=== PATIENT | male | born 1955 | race Caucasian/White ===

== ENCOUNTER → 2017-12-18 09:21 | Outpatient (REF) | payer OTHER, SELFPAY ==
[2017-12-18 14:23] LABS: Basophils # 0.1 K/mm3 (0-0.2); Basophils % 1.1 % (0.1-2.0); Eosinophils # 0.2 K/mm3 (0.0-0.4); Eosinophils % 3.2 % (0.1-12.0); Hematocrit 49.8 % (42.0-52.0); Lymphocytes # 1.6 K/mm3 (0.7-4.5); Lymphocytes % 28.4 K/mm3 (10-50); Mean Corpuscular Hemoglobin 31.8 pg (27.0-31.2); Mean Corpuscular Volume 99.3 fl (80-94); Mean Platelet Volume 9.1 fl (7.4-10.4); Monocytes # 0.4 K/mm3 (0.1-1.0); Monocytes % 7.2 % (1.7-9.3); Neutrophils # 3.4 K/mm3 (1.8-7.8); Neutrophils % 60.1 % (37.0-80.0); Platelet Count 242 K/mm3 (142-424); Red Blood Count 5.02 M/mm3 (4.60-6.20); Red Cell Distribution Width 13.7 % (11.5-17.5); White Blood Count 5.7 K/mm3 (4.8-10.8)
[2017-12-18 15:21] LABS: Alanine Aminotransferase 22 U/L (12-78); Albumin/Globulin Ratio 1.2 (1.1-1.8); Alkaline Phosphatase 74 U/L (46-116); Anion Gap 12.6 mEq/L (5-15); Aspartate Amino Transferase 11 U/L (15-37); Bilirubin,Total 0.3 mg/dL (0.2-1.0); Blood Urea Nitrogen 16 mg/dL (7-18); Calcium 9.1 mg/dL (8.5-10.1); Carbon Dioxide 30 mmol/L (21.0-32.0); Chloride 108 mmol/L (98-107); Chol/HDL Ratio 1.9 (1-3.5); Cholesterol 111 mg/dL (140-200); Creatinine,Serum 1.08 mg/dL (0.70-1.30); Estimated Glomerular Filt Rate 70 ml/min (>60); GFR (African American) 84 ML/MIN (>60); Globulin 3.3 gm/dl (1.3-3.2); Glucose 67 mg/dL (74-106); HDL Cholesterol 57 mg/dL (27-67); LDL Cholesterol 30 mg/dL (0-130); Potassium 4.6 mmoL/L (3.5-5.1); Sodium 146 mmol/L (136-145); Thyroid Stimulating Hormone 1.72 uIU/ml (0.358-3.740); Total Protein,Serum 7.3 gm/dL (6.4-8.2); Triglycerides 119 mg/dL (30-200); VLDL Cholesterol 24 mg/dL (0-40)
[2017-12-18 15:34] LABS: Hemoglobin A1C 5.5 % (0.0-7.0)
[2017-12-20 12:52] LABS: PSA, Free 0.23 ng/mL; Prostate Specific Ag 0.9 ng/mL (0.0-4.0); Vitamin D 25 Hydroxy 35.8 ng/mL (30.0-100.0)
== END ==
LOC: LAB 09:21
PROVIDERS: Visit Provider Nurse Practitioner Family
DX: R53.83 Other fatigue (principal); R06.02 Shortness of breath; R63.4 Abnormal weight loss
CPT/HCPCS: 80053; 80061; 82652; 83036; 84153; 84154; 84439; 84443; 85025

== ENCOUNTER → 2017-12-20 10:45 | Outpatient (CLI) | payer OTHER, SELFPAY ==
--- NOTE | 2017-12-20 10:50 | XR_ITS ---
XR chest 2V HISTORY: Shortness of air, smoker, cough with weight loss ITS.REASON: soa ORDERING PHYSICIAN: Jaimie Rudd PATIENT AGE: 62 years COMPARISON: None FINDINGS: The cardiomediastinal silhouette and pulmonary vascularity are within normal limits. There is hyperinflation with attenuation of the peripheral pulmonary vessels consistent with COPD. Small nodular opacities are present in the right upper lobe and may be due to granulomas. No lobar consolidation or collapse is evident. On the lateral view there is increased density along the anterior aspect of the major fissure anteriorly. This measures 2.2 x 1.4 cm in diameter to summation artifact. Pulmonary nodule is a consideration as well this patient with a history of smoking and weight loss. Consider chest CT for further evaluation. No acute bony anomalies. IMPRESSION: 1. COPD. 2. 2 cm nodular opacity in the seen on the lateral view in the inferior and anterior aspect of the chest which could be due to summation artifact or developing nodule. Consider chest CT for further evaluation
== END ==
PROVIDERS: PCP Emergency Medicine; Visit Provider Nurse Practitioner Family
DX: R06.02 Shortness of breath (principal)
CPT/HCPCS: 71046

== ENCOUNTER → 2018-01-10 06:38 | Outpatient (CLI) | payer OTHER, SELFPAY ==
--- NOTE | 2018-01-10 06:40 | NM_ITS ---
History and Indications: Tobacco use, family history, shortness of breath and fatigue Procedure: Patient received a 0.4 mg of intravenous Lexiscan, resting heart rate was 58 bpm resting blood pressure 147/83, with Lexiscan maximum heart rate achieved was 106 bpm which is less than 85% of the maximum predicted heart rate and a blood pressure was 157/78. With Lexiscan patient complained of shortness of breath. Electrocardiogram: Resting electrocardiogram showed sinus bradycardia, with Lexiscan less than 1.[address] segment depression noted from the baseline EKG, occasional premature ventricular complex is present. The EKG portion of the Lexiscan Myoview is nondiagnostic. Cardiac stress and resting SPECT images: Cardiac stress and rest SPECT images were obtained using technetium 99 Myoview 32.4 mCi at stress and 10.6 mCi at rest. Gated SPECT further analysis of segmental wall motion and calculation of the ejection fraction also done. Cardiac stress and rest SPECT images show uniform myocardial activity without segmental perfusion abnormality, computer derived ejection fraction is 40%, with no regional wall motion abnormality, however during this study frequent premature ventricular complex is present which may underestimate the ejection fraction. Contractility of the right ventricle cannot be determined Conclusion: 1. The EKG portion of the Lexiscan Myoview is nondiagnostic. 2. No scintigraphic evidence of reversible ischemia seen, computer derived ejection fraction 40% with no regional wall motion abnormality, however during this study frequent premature ventricular complex is present which may underestimate the ejection fraction, and echocardiogram will be better modality to evaluate left ventricle systolic function.
--- NOTE | 2018-01-10 06:40 | CA_ITS ---
PROCEDURE: 2-D M-mode and color Doppler study INDICATIONS FOR THE TEST: Chest pain+ COPD+ Heart Murmur Tobacco Smoking+ Palpitations Fatigue Syncope Edema Hypertension Diabetes Mellitus Rheumatic Fever SOB+ALEXANDRA+Obesity Hyperlipidemia Family History HD Additional History Abn EKG PATIENT INFORMATION HEIGHT: 74 WEIGHT: 132 GENDER: Male B/P: 128/73 2-D/M-MODE INTERPRETATION: 2-D MEASUREMENTS OBSERVED VALUES IN CMS Right Ventricular Dimension (RVDd) 1.6 Interventricular Septum (Thickness)(IVsd) 0.7 Left Ventricular Internal Dimensions(LVIDd) 4.5 Left Ventricular Posterior Wall (Thickness)(LVPWd) 0.8 Aortic Root 3.6 Aortic Cusp Separation 3.0 Left Atrial Dimensions (LAD) 2D 1. Left atrium is normal size, left ventricle is normal size, there is no concentric left ventricular hypertrophy, visually estimated ejection fraction of 55% with no regional wall motion abnormality, there is abnormal septal motion. 2. The right atrium and right ventricle are qualitatively mildly enlarged, contractility of the right ventricle is normal. 3. The aortic valve is minimally thickened and fibrosed. 4. The mitral and tricuspid valve are grossly normal. 5. The pulmonic valve is poorly visualized. 6. No significant pericardial effusion noted. DOPPLER INTERROGATION: Doppler interrogation of the aortic, mitral and tricuspid valvular presence of mild mitral and tricuspid regurgitation tricuspid regurgitation jet velocity is insufficient for calculation of the right ventricular systolic pressure, diastolic parameters are inconclusive. CONCLUSION: 1. Normal left ventricular size, preserved left ventricular systolic function, visually estimated ejection fraction 55%, there is abnormal septal motion, diastolic parameters are inconclusive. 2. Mild mitral and tricuspid regurgitation 3. No significant pericardial effusion noted.
== END ==
PROVIDERS: PCP Emergency Medicine; Visit Provider Internal Medicine
DX: R07.89 Other chest pain (principal); R06.09 Other forms of dyspnea; R63.4 Abnormal weight loss; R94.31 Abnormal electrocardiogram [ECG] [EKG]; J44.9 Chronic obstructive pulmonary disease, unspecified; F17.200 Nicotine dependence, unspecified, uncomplicated
CPT/HCPCS: 78452; 93017; 93306; A9502

== ENCOUNTER → 2018-01-12 13:26 | Outpatient (CLI) | payer OTHER, SELFPAY ==
--- NOTE | 2018-01-12 13:29 | CT_ITS ---
CT chest wo con HISTORY: Chest pain, abnormal chest x-ray, pulmonary nodule evaluation, shortness of air, smoker ITS.REASON: abn cxr ORDERING PHYSICIAN: Jaimie Rudd PATIENT AGE: 62 years COMPARISON: None Technique: Axial images obtained with sagittal and coronal reformats. All CT scans at the facility use one or more dose reduction, viz: automated exposure control, ma/kV adjustment per patient size (including targeted exams where dose is matched to indication, i.e. head), or iterative reconstruction technique. FINDINGS: No mediastinal or hilar mass or adenopathy. There are small nodes in the mediastinum 1 cm or less in short axis. Normal heart size. No evidence of pericardial effusion. There are moderate centrilobular emphysematous changes. There is a 5 mm nodule in the right upper lobe which does appear to contain a focus of calcium.. There is a 3 mm subpleural nodule in the left upper lobe laterally. A 3 mm nodules present in the left upper lobe centrally. There is mild diffuse bronchial thickening. There is hyperinflation with attenuation of the peripheral pulmonary vessels consistent with obstructive chronic bronchitis. A small focal pericardial fat pad is present on the left and likely accounts for the radiographic abnormality in the anterior aspect of the chest. There is also some pleural thickening here of the major fissure which likely contributes to the abnormality on the radiograph. No suspicious nodule is evident. There is a calcified granuloma in the right lower lobe anteriorly. No central obstructing lesions. No acute bony findings. IMPRESSION: 1. Radiographic abnormality corresponds to a left-sided pericardial fat pad along with some pleural thickening. No suspicious nodules evident. 2. Centrilobular emphysema with COPD. 3. There are scattered small pulmonary nodules some of which are calcified. The largest nodules in the right upper lobe 5 mm and appears to contain calcium. Recommend 12 month follow-up.
== END ==
PROVIDERS: PCP Emergency Medicine; Visit Provider Nurse Practitioner Family
DX: R93.8 Abnormal findings on diagnostic imaging of other specified body structures (principal); R07.89 Other chest pain; R06.09 Other forms of dyspnea
CPT/HCPCS: 71250

== ENCOUNTER → 2018-05-01 09:07 | Outpatient (POV) | payer OTHER, SELFPAY | PROVIDERS: Visit Provider Internal Medicine | DX: Z00.00 Encounter for general adult medical examination without abnormal findings (principal) ==

== ENCOUNTER → 2018-07-09 09:36 | Outpatient (CLI) | payer OTHER, SELFPAY ==
[2018-07-09 11:30] VITALS: PULSE 62; PULSE 68
== END ==
PROVIDERS: PCP Emergency Medicine; Visit Provider Internal Medicine
DX: J43.9 Emphysema, unspecified (principal)
CPT/HCPCS: 94060; 94618; 94640; 94726; 94729

== ENCOUNTER → 2018-08-07 12:27 | Outpatient (POV) | payer OTHER, SELFPAY | PROVIDERS: Visit Provider Internal Medicine | DX: Z00.00 Encounter for general adult medical examination without abnormal findings (principal) ==

== ENCOUNTER → 2019-01-17 13:11 | Outpatient (CLI) | payer OTHER, SELFPAY ==
--- NOTE | 2019-01-17 13:14 | CT_ITS ---
PROCEDURE: CT LUNG SCREENING CLINICAL INDICATION: CURRENT TOBACCO USE Eighty-four pack-year smoking history, asymptomatic for lung cancer COMPARISON: CHESTWO CT chest wo con from 01/12/2018 TECHNIQUE: The exam was performed on a GE Light Speed [address] scanner using 2.90 mGy CTDI. A low dose helical CT CHEST was performed on a multi-detector scanner. All CT scans at the facility use one or more dose reduction, viz: automated exposure control, ma/kV adjustment per patient size (including targeted exams where dose is matched to indication, i.e. head), or iterative reconstruction technique. The LDCT was performed in a facility that meets the criteria for the screening program. Data regarding this exam was submitted to ACR which is an approved registry. The order for this exam indicates that it came as a result of a lung cancer screening counseling shard decision-making visit that included all the elements required of such a visit including smoking cessation. The radiologist interpreting this exam meets the CMS criteria for the LDCT lung cancer screening program. The exam is reported using the Lung-RADS classification scale and reported to the ACR registry. NOTE: This study was performed for the specific purposes of lung cancer screening and is not an alternative to diagnostic chest CT. RADIATION DOSE: CTDI vol(CT dose Index-volume) = 2.90mG DLP (Dose Length Product) = 124.81 mGcm FINDINGS: COPD with centrilobular emphysema scattered calcified granulomas. No suspicious pulmonary nodules apparent. OTHER FINDINGS: No other pertinent findings evident. IMPRESSION: Lung rads category 2 benign findings. Recommend 12 month LDCT follow-up Dictated by: Robb Mckinney MD 01/19/2019 10:25 Electronically signed by Robb Mckinney MD in [place] 01/19/2019 10:25
== END ==
PROVIDERS: PCP Emergency Medicine; Visit Provider Internal Medicine
DX: Z87.891 Personal history of nicotine dependence (principal); Z12.2 Encounter for screening for malignant neoplasm of respiratory organs

== ENCOUNTER → 2019-01-29 13:31 | Outpatient (POV) | payer OTHER, SELFPAY | PROVIDERS: Visit Provider Internal Medicine | DX: Z00.00 Encounter for general adult medical examination without abnormal findings (principal) ==

== ENCOUNTER → 2020-12-08 13:47 | Outpatient (CLI) | payer OTHER, SELFPAY ==
--- NOTE | 2020-12-08 | CA_ITS ---
APPROVED REPORT EXAM: Comprehensive 2D, Doppler, and color-flow Echocardiogram Steward/Stewardess: Liliana Bearden CRT Ht: 6 ft 2 in Wt: 140lbs BSA: 1.87 BP: 120/80 mmHg Indications: COPD, Smoker 2D Dimensions LVOT 2.00 cm (M/F) 1.5-2.5 M-Mode Dimensions RVDd 2.24 cm (0.9-2.6) LA Diam 2.58 cm (1.9-4.0) LVDd 5.05 cm (3.5-5.7) Ao Diam 4.24 cm (2.0-3.7) LVDs 3.31 cm (3.5-5.7) IVSd 0.78 cm (0.6-1.1) PWd 0.58 cm (0.6-1.1) EF (Teich) 63.20% FS 34.50% EDV (Teich) 121.00 mL ESV (Teich) 44.50 mL LV Diastology E Decel Time 340.00 (160-240 msec) E/A Ratio 0.99 Mitral Valve MV E Max Moris. 65.00 (40-130 cm/s) MV A Velocity 66.00 (40-130 cm/s) E/A Ratio 0.99 MV Decel. Time 340.00 (160-240 ms) MV PHT 100.00 ms Tricuspid Valve TR P. Velocity 245.00 cm/s RAP Estimate 10.00 mmHg RVSP 33.90 mmHg Left Ventricle Left atrium is mildly enlarged, left ventricle is normal size, mild concentric left ventricular hypertrophy visually estimated ejection fraction 55% with no regional wall motion abnormality, Doppler evidence of impaired LV relaxation seen. Right Ventricle Right atrium right ventricle mildly enlarged with normal contractility. Aortic Valve Aortic valve is thickened and calcified without aortic stenosis or aortic insufficiency. Mitral Valve Mitral valve grossly normal, there is trace mitral regurgitation. Tricuspid Valve Tricuspid grossly normal, there is trace tricuspid regurgitation. Tricuspid rotation jet velocity is inadequate for calculation of the right ventricular systolic pressure. Pulmonic Valve Pulmonic valve is poorly visualized. Great Vessels Aortic root is normal size. Inferior vena cava is mildly dilated, with normal inspiratory collapse. Pericardium No significant pericardial effusion noted. Conclusion 1. Technically difficult study, mild biatrial enlargement, normal left ventricular size, mild concentric left ventricular hypertrophy, visually estimated ejection fraction 55% with no regional wall motion abnormality, diastolic parameters are inconclusive. 2. Mildly enlarged right ventricle with normal contractility. 3. Mild mitral and tricuspid regurgitation. 4. No significant pericardial effusion noted. 5. Inferior vena cava is mildly dilated with normal inspiratory collapse. Electronically signed by : Arash Kerr MD 12/08/2020 20:59:20
== END ==
PROVIDERS: PCP Nurse Practitioner; Visit Provider Nurse Practitioner
DX: I77.819 Aortic ectasia, unspecified site (principal)
CPT/HCPCS: 93306

== ENCOUNTER → 2020-12-29 11:36 | Outpatient (CLI) | payer OTHER, SELFPAY ==
[2020-12-29 11:58] LABS: Basophils # 0.1 K/mm3 (0-0.2); Basophils % 0.9 % (0.1-2.0); Eosinophils # 0.1 K/mm3 (0.0-0.4); Eosinophils % 1.7 % (0.1-12.0); Hematocrit 48.6 % (42.0-52.0); Hemoglobin 16.1 g/dL (14.1-18.0); Lymphocytes # 1.4 K/mm3 (0.7-4.5); Lymphocytes % 21.4 % (10-50); Mean Corpuscular HGB Conc 33.1 g/dL (31.8-35.4); Mean Corpuscular Hemoglobin 32.9 pg (27.0-31.2); Mean Corpuscular Volume 99.5 fl (80-94); Mean Platelet Volume 8.9 fl (7.4-10.4); Monocytes # 0.4 K/mm3 (0.1-1.0); Monocytes % 5.9 % (1.7-9.3); Neutrophils # 4.5 K/mm3 (1.8-7.8); Neutrophils % 70.1 % (37.0-80.0); Platelet Count 188 K/mm3 (142-424); Red Blood Count 4.89 M/mm3 (4.60-6.20); White Blood Count 6.4 K/mm3 (4.8-10.8)
[2020-12-29 12:25] LABS: Chloride 105 mmol/L (98-107); Potassium 4.5 mmoL/L (3.5-5.1); Sodium 142 mmol/L (136-145)
[2020-12-29 12:27] LABS: Alanine Aminotransferase 16 U/L (12-78); Aspartate Amino Transferase 24 U/L (17-59); Blood Urea Nitrogen 14 mg/dl (9-20); Estimated Glomerular Filt Rate 75 ml/min (>60); GFR (African American) 91 ML/MIN (>60)
[2020-12-29 12:28] LABS: Albumin Level 4.2 g/dl (3.5-5.0); Albumin/Globulin Ratio 1.8 (1.1-1.8); Alkaline Phosphatase 64 U/L (38-126); Anion Gap 14.5 mEq/L (5-15); Bilirubin,Total 0.3 mg/dl (0.2-1.3); Calcium 9.2 mg/dl (8.4-10.2); Carbon Dioxide 27 mmol/L (22.0-30.0); Chol/HDL Ratio 2.6 (1-3.5); Cholesterol 125 mg/dl (140-200); Globulin 2.4 g/dL (1.3-3.2); Glucose 111 mg/dl (74-100); HDL Cholesterol 49 mg/dl (40-60); Total Protein,Serum 6.6 g/dl (6.3-8.2); Triglycerides 100 mg/dl (30-150); VLDL Cholesterol 20 mg/dL (0-40)
[2020-12-29 12:39] LABS: Direct LDL Cholesterol < 30.00 mg/dL (100-129)
[2020-12-30 08:28] LABS: PSA, Free 0.43 ng/mL; Prostate Specific Ag 2.5 ng/mL (0.0-4.0)
== END ==
PROVIDERS: Visit Provider Internal Medicine Adolescent Medicine
DX: J44.9 Chronic obstructive pulmonary disease, unspecified (principal); R39.198 Other difficulties with micturition
CPT/HCPCS: 36415; 80053; 80061; 84153; 84154; 85025

== ENCOUNTER → 2021-03-09 11:48 | Outpatient (CLI) | payer OTHER, SELFPAY | PROVIDERS: Visit Provider Surgery | DX: Z01.812 Encounter for preprocedural laboratory examination (principal); Z20.822 Contact with and (suspected) exposure to COVID-19; Z12.11 Encounter for screening for malignant neoplasm of colon; Z86.010 Personal history of colon polyps | CPT/HCPCS: C9803; U0003; U0005 ==

== ENCOUNTER 2021-03-11 11:17 | Day surgery (SDC) | payer OTHER, SELFPAY ==
[2021-03-08 10:44] VITALS: BMI 17.3
[2021-03-11] VITALS (7 sets, daily range): BP systolic 82–162; BP diastolic 58–99; PULSE 69–93; RESP 18; TEMP 36.2–36.6; O2SAT 93–96
--- NOTE | 2021-03-11 11:42 | P.PN_ITS ---
[facility] Anesthesia Checklist - Patient Identification Patient Identification: Arm Band - Structural Data Admitted From: Home Planned Operative Procedure/s: Colonoscopy Consent for Planned Operative Procedure(s) Verified: Yes - NPO Status Verified Time NPO: 08:00 (Clear soda) - Additional verifications Anesthesia Reactions: No - Airway Assessment C-Spine Mobility Assessed: Yes TMJ Mobility Assessed: Yes Dentition: Edentulous - Neurological Assessment Level of Consciousness: Awake Hx Seizures: No Numbness or tingling in extremities: No - Anesthesia Plan Anesthesia Risk discussed: Yes Anesthesia Plan: Verified ASA Class: III Anesthesia Type: MAC [facility] History I have reviewed the patient's past medical history: Yes Medical History: Reports:: Chronic Obstructive Pulmonary Disease (COPD), Lung Disease, Seizures Denies:: Cancer, Diabetes Mellitus Type 1, Diabetes Mellitus Type 2, Internal Pacemaker, MRSA *Have you ever received a pneumonia vaccine?: Yes *Have you received a flu vaccine this season?: No Anesthesia experience/problems:: None Other Surgeries: Yes: Other (left forearm ORIF). No: Pacemaker Amputation: No Fractures: Yes - *Social History Last grade of school completed: High school graduate Smoking Status: Current every day smoker Tobacco Type: cigarettes # Packs/Day (cigarettes): 1 Alcohol Intake: never Alcohol Intake Frequency:: other Substance Use Type: marijuana *Occupational Status:: retired Housing: house *Travel in the last 8 weeks: None Family Hx:: Diabetes
--- NOTE | 2021-03-11 12:53 | P.PCN_ITS ---
- Procedure: Date: 03/11/21 Patient Date of :: 1955 Procedure Performed:: Colonoscopy with polypectomy Indications:: History of colon polyps. Last colonoscopy in November 2018 revealed tubular adenomas of the right colon, distal transverse colon, at 25 cm (1.5 cm), and at 20 cm. A 1-year repeat was recommended secondary to limitations in visualization. Performing Provider:: Wolf Mackay MD Referring Provider:: . Sedation:: Monitored anesthesia care Procedure:: After informed consent was obtained the patient was taken to the endoscopy suit e. Sedation ensued after the patient was transferred to the left lateral decubitus position. Pulse, blood pressure, and oxygen saturation were monitored throughout the procedure. Digital rectal exam revealed no significant abnormality. The colonoscope was placed in position. The entire colon was evaluated. The colonoscope was carefully removed and the patient was transferred to recovery in stable condition. Please see findings and specimens below for detail. Findings:: Bowel preparation poor Profound tortuosity Severe spasticity Hemorrhoidal cushions/tags Scattered sigmoid diverticulosis Lobulated complex polyps (see specimens) Specimens:: Right colon polyp Large sessile hepatic flexure polyp Complex lobulated proximal transverse colon polyp Recommendations:: Timing of repeat colonoscopy is pending pathology but likely be between 1-2 years secondary to history of significant polyps, size/nature of polyps noted on this evaluation, poor bowel preparation, spasticity, and tortuosity. Barium enema recommended prior to repeat colonoscopy secondary to severe tortuosity. Complications:: No immediate with the exception of poor bowel preparation Estimated blood obtained (mL): 1
== END 2021-03-11 13:50 | disposition home or self-care (01) ==
LOC: OUTP 11:18
PROVIDERS: PCP Nurse Practitioner; Visit Provider Surgery
PROC: 0DJD8ZZ Inspection of Lower Intestinal Tract, Via Natural or Artificial Opening Endoscopic (ICD-10-PCS; CPT 45380; principal; 2021-03-11 12:30)
DX: Z12.11 Encounter for screening for malignant neoplasm of colon (principal); K64.9 Unspecified hemorrhoids; K63.5 Polyp of colon; K56.2 Volvulus; K58.9 Irritable bowel syndrome, unspecified; K57.32 Diverticulitis of large intestine without perforation or abscess without bleeding; Z86.010 Personal history of colon polyps; J44.9 Chronic obstructive pulmonary disease, unspecified; R56.9 Unspecified convulsions; Z72.0 Tobacco use; Z83.3 Family history of diabetes mellitus
CPT/HCPCS: 45380

== ENCOUNTER → 2021-07-07 10:52 | Outpatient (CLI) | payer OTHER, SELFPAY ==
--- NOTE | 2021-07-07 10:52 | FL_ITS ---
FINAL REPORT CLINICAL HISTORY: . POOR CLEAN OUT 3:56 FLUORO TIME FINDINGS: BARIUM ENEMA HISTORY: Poor cleanout, recent colonoscopy. PROCEDURE: Barium contrast was instilled via gravity drip through a rectal tube. Spot and overhead films were performed. A total of 36 images were saved. FINDINGS: Sustainability Officer film is unremarkable. There are scattered diverticuli noted in the sigmoid colon. Remaining colon is unremarkable. There are no constricting or obstructing lesions identified to the level of the cecum. Some images demonstrates narrowing in the transverse colon, near the hepatic flexure. This is due to spasm. Patient has an incompetent ileocecal valve. Fluoroscopy time: 3 minutes 56 seconds. IMPRESSION: Sigmoid colon diverticuli noted. No constricting or obstructing lesions identified to the level of the cecum. Reviewed, Interpreted and Dictated by Atul Garcia III, MD Transcribed by Zeenat Gamez PA-C Authenticated by Atul Garcia III, MD on 07/09/2021 01:07:24 PM [facility]
== END ==
PROVIDERS: PCP Nurse Practitioner; Visit Provider Surgery
DX: D12.6 Benign neoplasm of colon, unspecified (principal)
CPT/HCPCS: 74270

== ENCOUNTER 2022-05-30 16:04 | Emergency (ER) | payer OTHER, SELFPAY ==
[2022-05-30] VITALS (7 sets, daily range): BP systolic 130–166; BP diastolic 88–109; PULSE 80–100; RESP 14–20; TEMP 36.6–36.7; O2SAT 94–98; BMI 19.0
--- NOTE | 2022-05-30 16:15 | XR_ITS ---
PROCEDURE INFORMATION: Exam: XR Chest Exam date and time: 05/30/2022 4:27 PM Age: 66 years old Clinical indication: Cough and shortness of breath; Patient HX: SOA w cough x days TECHNIQUE: Imaging protocol: Radiologic exam of the chest. Views: 2 views. COMPARISON: CT LUNG SCREENING 01/17/2019 1:55 PM FINDINGS: Lungs: Lung hyperinflation. No acute airspace consolidation. Pleural spaces: Unremarkable. No pleural effusion. No pneumothorax. Heart/Mediastinum: Unremarkable. No cardiomegaly. Bones/joints: Unremarkable. IMPRESSION: Lung hyperinflation.
--- NOTE | 2022-05-30 16:27 | ECG_ITS ---
APPROVED REPORT Exam: Resting ECG HR:85 bpm ECG Measurements Heart Rate 85 AXES [place] 157 P 88 QRSd 101 QRS 248 QT 351 T 81 QTc 393 Conclusion SINUS RHYTHM WITH OCCASIONAL VENTRICULAR PREMATURE COMPLEXES POSSIBLE RIGHT ATRIAL ENLARGEMENT [0.25mV P-WAVE] RIGHT AXIS DEVIATION [QRS AXIS > 100] PATTERN CONSISTENT WITH PULMONARY DISEASE ABNORMAL ECG INTERPRETATION BASED ON A DEFAULT AGE OF 42 YEARS UNCONFIRMED REPORT Electronically signed by : Patel Darnell MD 05/30/2022 18:49:43
--- NOTE | 2022-05-30 16:35 | PC.NURSE ---
PT TO XR
--- NOTE | 2022-05-30 16:40 | PC.NURSE ---
PT RETURNED FROM XR
--- NOTE | 2022-05-30 16:50 | PC.NURSE ---
DR HATCH AT BEDSIDE
[2022-05-30 16:52] LABS: Basophils # 0.1 K/mm3 (0-0.2); Basophils % 0.8 % (0.1-2.0); Eosinophils # 0.2 K/mm3 (0.0-0.4); Eosinophils % 2.3 % (0.1-12.0); Hematocrit 48.4 % (42.0-52.0); Hemoglobin 16.2 g/dL (14.1-18.0); Lymphocytes # 0.9 K/mm3 (0.7-4.5); Lymphocytes % 11.2 % (10-50); Mean Corpuscular HGB Conc 33.4 g/dL (31.8-35.4); Mean Corpuscular Hemoglobin 31.9 pg (27.0-31.2); Mean Corpuscular Volume 95.5 fl (80-94); Monocytes # 0.6 K/mm3 (0.1-1.0); Monocytes % 7.1 % (1.7-9.3); Neutrophils # 6.1 K/mm3 (1.8-7.8); Neutrophils % 78.6 % (37.0-80.0); Platelet Count 159 K/mm3 (142-424); Red Blood Count 5.07 M/mm3 (4.60-6.20); Red Cell Distribution Width 13.8 % (11.5-17.5); White Blood Count 7.8 K/mm3 (4.8-10.8)
[2022-05-30 16:53] LABS: Chloride 110 mmol/L (98-107)
[2022-05-30 16:54] LABS: Potassium 4.4 mmoL/L (3.5-5.1); Sodium 141 mmol/L (136-145)
--- NOTE | 2022-05-30 16:54 | HMH.EDGENADL ---
Discharge Plan Disposition Patient Disposition: Home, Self-Care Prescriptions Prescriptions: New albuterol sulfate 90 mcg/actuation HFA aerosol inhaler 4 inh inhalation Q4H PRN (Reason: shortness of breath or wheezing) Qty: 8.5 0RF Rx Instructions: 4 puffs every 4 hours for 48 hours then as needed for shortness of breath or wheezing following that prednisone 50 mg tablet 50 mg PO DAILY 5 Days Qty: 5 0RF Rx Instructions: Begin 1 day after ED visit doxycycline hyclate 100 mg capsule 100 mg PO BID 10 Days Qty: 20 0RF No Action Anoro Ellipta 62.5-25 mcg/actuation blister with device 1 inh INHALATION Q24H Referrals Follow up/Referrals: Provider,Referral, MD [Primary Care Provider] - See instructions Activity Restrictions/Add. Instructions Additional Instructions/Restrictions: Your presentation today was consistent with a COPD exacerbation. You left prior to your flu and COVID test returning please follow-up with your primary care doctor regarding those results as it might change management specialist if positive. Return to the emergency department with any worsening. Clinical Impressions Clinical Impression: Acute exacerbation of chronic obstructive airways disease Discharge ED Provider: Wagner Dalton Adult HPI General Chief complaint: Shortness of Breath/Dyspnea Stated complaint: SOB Time Seen by Provider: 05/30/22 16:54 Mode of Arrival: Wheelchair Limitations: No Limitations Description of Symptoms (Recalled from ER Triage Doc. by RN): PT REPORTS INCREASED SHORTNESS OF BREATH FOR 3-4 DAYS. PT DENIES CHEST PAIN, NO FEVER. History of Present Illness HPI narrative: Patient is a 66-year-old male with a history of COPD presents today with I cannot breathe . States that for the last several days he has been increasingly using his albuterol inhaler which has had some improvement with it but that he is getting worse from a respiratory standpoint. States he had increasing wheezing and productive cough associate with this as well. Denies any chest pain. Denies any lower extremity swelling. Denies any orthopnea. No fevers. No longer is a smoker. Stopped in March of last year. Related Data Home Medications Medication Instructions Recorded Confirmed umeclidinium 62.5 mcg-vilanterol 1 inh inhalation Q24H COPD 05/03/18 07/14/21 25 mcg/actuation powdr for inhalation (Anoro Ellipta) Previous Rx's Medication Instructions Recorded albuterol sulfate 90 mcg/actuation 4 inh inhalation Q4H PRN shortness 05/30/22 aerosol inhaler of breath or wheezing #8.5 grams doxycycline hyclate 100 mg capsule 100 mg PO BID 10 days #20 caps 05/30/22 prednisone 50 mg tablet 50 mg PO DAILY 5 days #5 tabs 05/30/22 Allergies Allergy/AdvReac Type Severity Reaction Status Date / Time No Known Allergies Allergy Verified 07/14/21 09:01 [facility] Disclaimer: The information contained in this section may have been updated after the patient was seen, as this information can be updated by other users. Medical History COPD (chronic obstructive pulmonary disease) ALEXANDRA (dyspnea on exertion) Tobacco use Family History (Updated 05/30/22 @ 16:43 by Liyah Horvath RN) Other No significant family history Social History (Updated 05/30/22 @ 16:43 by Liyah Horvath RN) Smoking Status: Former smoker second hand exposure: No alcohol intake: never substance use type: marijuana current occupational status: retired Travel in the last 8 weeks: None housing: house current occupational exposures/hazards: No caffeine: Yes ROS Obtained: Yes All systems reviewed & no additional complaints except as documented Physical Exam General General appearance: alert Respiratory Respiratory exam: Present other (Patient is a hyperexpanded thoracic cage which appears chronic, patient has prolonged expiratory phase with mild expiratory wheezing. No respiratory distress. Oxygen satu
[2022-05-30 16:56] LABS: Alanine Aminotransferase 22 U/L (12-78); Aspartate Amino Transferase 31 U/L (17-59); Blood Urea Nitrogen 19 mg/dl (9-20); Creatinine Clearance Estimated 71 mL/min (50-200); Estimated Glomerular Filt Rate 114 ml/min (>60); GFR (African American) 137 ML/MIN (>60)
[2022-05-30 16:57] LABS: Albumin Level 4.4 g/dl (3.5-5.0); Albumin/Globulin Ratio 1.4 (1.1-1.8); Alkaline Phosphatase 71 U/L (38-126); Anion Gap 11.4 mEq/L (5-15); Bilirubin,Total 0.5 mg/dl (0.2-1.3); Calcium 8.8 mg/dl (8.4-10.2); Carbon Dioxide 24 mmol/L (22.0-30.0); Globulin 3.2 g/dL (1.3-3.2); Glucose 112 mg/dl (74-100); Total Protein,Serum 7.6 g/dl (6.3-8.2)
--- NOTE | 2022-05-30 17:39 | PC.NURSE ---
DR HATCH AT BEDSIDE TO REEVALUATE PT
[2022-05-30 17:49] LABS: Coronavirus 19, PCR Not Detected (NotDetected); Influenza A, PCR Not Detected (NotDetected); Influenza B, PCR Not Detected (NotDetected)
--- NOTE | 2022-05-30 18:18 | PC.NURSE ---
rounded on pt, family at bs, no needs at this time
== END 2022-05-30 18:28 | disposition home or self-care (01) ==
PROVIDERS: Emergency Provider Student in an Organized Health Care Education/Training Program
DX: J44.1 Chronic obstructive pulmonary disease with (acute) exacerbation (principal); Z87.891 Personal history of nicotine dependence; Z20.822 Contact with and (suspected) exposure to COVID-19
CPT/HCPCS: 71046; 80053; 85025; 93005; 99285; C9803; U0003; U0005

== ENCOUNTER 2022-07-09 18:04 | Emergency (ER) | payer OTHER, SELFPAY ==
[2022-07-09 18:05] VITALS: BP 151/114; PULSE 81; RESP 20; TEMP 36.6; O2SAT 96; BMI 16.0
--- NOTE | 2022-07-09 18:13 | ECG_ITS ---
APPROVED REPORT Exam: Resting ECG HR:78 bpm ECG Measurements Heart Rate 78 AXES [place] 155 P 88 QRSd 110 QRS 233 QT 366 T 68 QTc 399 Conclusion SINUS RHYTHM INDETERMINATE AXIS PATTERN CONSISTENT WITH PULMONARY DISEASE ABNORMAL ECG UNCONFIRMED REPORT Electronically signed by : Patel Darnell MD 07/10/2022 15:44:30
--- NOTE | 2022-07-09 18:20 | XR_ITS ---
PROCEDURE INFORMATION: Exam: XR Chest Exam date and time: 07/09/2022 6:41 PM Age: 66 years old Clinical indication: Condition or disease; Other: Copd; Additional info: Copd exacerbation TECHNIQUE: Imaging protocol: Radiologic exam of the chest. Views: 1 view. COMPARISON: CR XR CHEST 2V 05/30/2022 4:27 PM FINDINGS: Lungs: Hyperinflation compatible with COPD. Lungs are clear. Pleural spaces: Unremarkable. No pleural effusion. No pneumothorax. Heart/Mediastinum: Unremarkable. No cardiomegaly. Bones/joints: Unremarkable. IMPRESSION: Stable chest x-ray with no acute disease. COPD changes.
[2022-07-09 18:30] VITALS: PULSE 81
[2022-07-09 18:35] LABS: Basophils # 0.2 K/mm3 (0-0.2); Basophils % 1.4 % (0.1-2.0); Eosinophils # 0.6 K/mm3 (0.0-0.4); Eosinophils % 5.9 % (0.1-12.0); Hemoglobin 16.6 g/dL (14.1-18.0); Lymphocytes # 2.3 K/mm3 (0.7-4.5); Lymphocytes % 21.7 % (10-50); Mean Corpuscular HGB Conc 31.9 g/dL (31.8-35.4); Mean Corpuscular Hemoglobin 31.6 pg (27.0-31.2); Mean Corpuscular Volume 98.9 fl (80-94); Mean Platelet Volume 8.9 fl (7.4-10.4); Monocytes # 0.7 K/mm3 (0.1-1.0); Monocytes % 6.4 % (1.7-9.3); Neutrophils # 6.9 K/mm3 (1.8-7.8); Neutrophils % 64.5 % (37.0-80.0); Platelet Count 212 K/mm3 (142-424); Red Blood Count 5.26 M/mm3 (4.60-6.20); Red Cell Distribution Width 14.2 % (11.5-17.5); White Blood Count 10.7 K/mm3 (4.8-10.8)
[2022-07-09 18:42] LABS: Alanine Aminotransferase 24 U/L (12-78); Albumin Level 4.8 g/dl (3.5-5.0); Albumin/Globulin Ratio 1.8 (1.1-1.8); Alkaline Phosphatase 66 U/L (38-126); Anion Gap 13.4 mEq/L (5-15); Aspartate Amino Transferase 33 U/L (17-59); Bilirubin,Total 0.4 mg/dl (0.2-1.3); Blood Urea Nitrogen 20 mg/dl (9-20); Calcium 9.3 mg/dl (8.4-10.2); Carbon Dioxide 25 mmol/L (22.0-30.0); Chloride 105 mmol/L (98-107); Creatinine Clearance Estimated 60 mL/min (50-200); Estimated Glomerular Filt Rate 97 ml/min (>60); GFR (African American) 118 ML/MIN (>60); Globulin 2.7 g/dL (1.3-3.2); Glucose 88 mg/dl (74-100); Potassium 4.4 mmoL/L (3.5-5.1); Sodium 139 mmol/L (136-145); Total Protein,Serum 7.5 g/dl (6.3-8.2)
[2022-07-09 19:00] VITALS: BP 141/91; PULSE 79; RESP 17; O2SAT 97
[2022-07-09 19:00] LABS: Procalcitonin 0.047 ng/mL (0.0-2.0)
[2022-07-09 19:04] VITALS: PULSE 82
[2022-07-09 19:30] VITALS: BP 137/94; PULSE 77; RESP 16; O2SAT 93
--- NOTE | 2022-07-09 19:37 | PC.NURSE ---
ER speaking with pt at this time
--- NOTE | 2022-07-09 19:41 | HMH.EDGENADL ---
Discharge Plan Disposition Patient Disposition: Home, Self-Care Condition: Good Prescriptions Prescriptions: New prednisone 50 mg tablet 50 mg PO DAILY 5 Days Qty: 5 0RF albuterol sulfate [Ventolin HFA] 90 mcg/actuation HFA aerosol inhaler 2 inh inhalation Q4H PRN (Reason: shortness of breath or wheezing) Qty: 8.5 1RF No Action fluticasone propionate [Flovent HFA] 44 mcg/actuation HFA aerosol inhaler 2 inh INHALATION BID Label Comments: INHALE 2 PUFFS BY MOUTH TWICE DAILY. RINSE MOUTH WITH WATER AFTER USE FOR AFTERTASTE AND INCIDENCE OF CANDIDIASIS. DO NOT SWALLOW albuterol sulfate [Ventolin HFA] 90 mcg/actuation HFA aerosol inhaler 2 inh INHALATION Q6 PRN (Reason: Wheezing) Label Comments: INHALE 2 PUFFS BY MOUTH NEEDED FOR WHEEZING AND SHORTNESS OF BREATH sildenafil (pulm.hypertension) 20 mg tablet 40 mg PO DAILY PRN (Reason: Erectile Dysfunction) Label Comments: TAKE 2 TABLETS BY MOUTH DAILY NEEDED Anoro Ellipta 62.5-25 mcg/actuation blister with device 1 inh INHALATION DAILY Label Comments: INHALE 1 PUFF BY MOUTH 1 TIME EACH DAY Referrals Follow up/Referrals: Provider,Referral, MD [Primary Care Provider] - See instructions Clinical Impressions Clinical Impression: COPD exacerbation Instructions Patient Instructions: DI for Chronic Obstructive Pulmonary Disease Discharge ED Provider: Marlo Hollis General Adult HPI General Chief complaint: Shortness of Breath/Dyspnea Stated complaint: SOA Time Seen by Provider: 07/09/22 18:10 Mode of Arrival: Ambulatory Source of Information: Patient Limitations: No Limitations Description of Symptoms (Recalled from ER Triage Doc. by RN): 66 M presents with acute/chronic dyspnea. He quit smoking 7-8 months ago and is supposed to see a pulmnologist on July 25, 2022. He believes he has COPD. He has inhalers he uses at home with little to no relief today. He does not wear oxygen at home. He was not hypoxic on arrival, but when he sat down he was pursed lip breathing and in tripod position for better air movement. History of Present Illness HPI narrative: Patient is a 66-year-old male with a past medical history of hypertension, COPD who presents with concern for shortness of breath. He says that he recently stopped smoking about 7 to 8 months ago and does have a follow-up to see a territory service representative. He says that over the last couple days he has gotten progressively more short of breath. He says he has been using his inhalers but had not helped. Does not wear oxygen at baseline. He denies any sputum production. Denies any cough. He says he does feel like he has a tightness in his chest and is having to work harder to breathe than normal. Denies any leg swelling. Denies any orthopnea. Any fever or chills. Related Data Home Medications Medication Instructions Recorded Confirmed albuterol sulfate 90 mcg/actuation 2 inh inhalation Q6 PRN Wheezing 07/09/22 07/09/22 aerosol inhaler (Ventolin HFA) fluticasone propionate 44 2 inh inhalation BID Breathing 07/09/22 07/09/22 mcg/actuation HFA aerosol inhaler problems (Flovent HFA) sildenafil (pulm.hypertension) 20 40 mg PO DAILY PRN Erectile 07/09/22 07/09/22 mg tablet Dysfunction umeclidinium 62.5 mcg-vilanterol 1 inh inhalation DAILY Breathing 07/09/22 07/09/22 25 mcg/actuation powdr for problems inhalation (Anoro Ellipta) Previous Rx's Medication Instructions Recorded albuterol sulfate 90 mcg/actuation 2 inh inhalation Q4H PRN shortness 07/09/22 aerosol inhaler (Ventolin HFA) of breath or wheezing #8.5 grams prednisone 50 mg tablet 50 mg PO DAILY 5 days #5 tabs 07/09/22 Allergies Allergy/AdvReac Type Severity Reaction Status Date / Time No Known Allergies Allergy Verified 07/14/21 09:01 [facility] Disclaimer: The information contained in this section may have been updated after the patient was seen, as this information can be
[2022-07-09 20:10] VITALS: BP 154/84; PULSE 79; RESP 19; TEMP 36.6; O2SAT 96
== END 2022-07-09 20:13 | disposition home or self-care (01) ==
PROVIDERS: Emergency Provider Student in an Organized Health Care Education/Training Program
DX: J44.1 Chronic obstructive pulmonary disease with (acute) exacerbation (principal)
CPT/HCPCS: 71045; 80053; 84145; 85025; 86140; 93005; 96365; 96374; 99285; J3475

== ENCOUNTER → 2023-01-10 16:20 | Outpatient (CLI) | payer MEDICARE, MEDICAID, SELFPAY ==
[2023-01-10 12:15] LABS: Basophils % 0.5 % (0.1-2.0); Eosinophils # 0.3 K/mm3 (0.0-0.4); Eosinophils % 4.5 % (0.1-12.0); Hemoglobin 16.9 g/dL (14.1-18.0); Lymphocytes # 1.4 K/mm3 (0.7-4.5); Lymphocytes % 21.3 % (10-50); Mean Corpuscular HGB Conc 32.5 g/dL (31.8-35.4); Mean Corpuscular Hemoglobin 31.4 pg (27.0-31.2); Mean Corpuscular Volume 96.5 fl (80-94); Mean Platelet Volume 9.4 fl (7.4-10.4); Monocytes # 0.5 K/mm3 (0.1-1.0); Monocytes % 7.3 % (1.7-9.3); Neutrophils # 4.3 K/mm3 (1.8-7.8); Neutrophils % 66.4 % (37.0-80.0); Platelet Count 216 K/mm3 (142-424); Red Cell Distribution Width 13.9 % (11.5-17.5); White Blood Count 6.4 K/mm3 (4.8-10.8)
[2023-01-10 12:22] LABS: Alanine Aminotransferase 20 U/L (12-78); Albumin Level 4.8 g/dl (3.5-5.0); Albumin/Globulin Ratio 1.4 (1.1-1.8); Alkaline Phosphatase 76 U/L (38-126); Anion Gap 13.1 mEq/L (5-15); Aspartate Amino Transferase 29 U/L (17-59); Bilirubin,Total 0.4 mg/dl (0.2-1.3); Blood Urea Nitrogen 15 mg/dl (9-20); Calcium 9.9 mg/dl (8.4-10.2); Carbon Dioxide 27 mmol/L (22.0-30.0); Chloride 105 mmol/L (98-107); Chol/HDL Ratio 3.1 (1-3.5); Cholesterol 181 mg/dl (140-200); Estimated Glomerular Filt Rate 75 ml/min (>60); GFR (African American) 91 ML/MIN (>60); Globulin 3.4 g/dL (1.3-3.2); Glucose 89 mg/dl (74-100); HDL Cholesterol 59 mg/dl (40-60); Potassium 4.1 mmoL/L (3.5-5.1); Sodium 141 mmol/L (136-145); Total Protein,Serum 8.2 g/dl (6.3-8.2); Triglycerides 116 mg/dl (30-150); VLDL Cholesterol 23 mg/dL (0-40)
[2023-01-10 12:34] LABS: Direct LDL Cholesterol 35.21 mg/dL (100-129)
[2023-01-10 12:53] LABS: Prostate Specific Ag Screen 1.7 ng/ml (0.0-4.0)
== END ==
PROVIDERS: PCP Internal Medicine; Visit Provider Internal Medicine
DX: R06.09 Other forms of dyspnea (principal); Z76.89 Persons encountering health services in other specified circumstances; Z12.5 Encounter for screening for malignant neoplasm of prostate; I10 Essential (primary) hypertension; Z87.891 Personal history of nicotine dependence
CPT/HCPCS: 80053; 80061; 85025; G0103

== ENCOUNTER → 2023-01-26 11:45 | Outpatient (CLI) | payer MEDICARE, MEDICAID, SELFPAY ==
[2023-01-26 12:20] LABS: Basophils % 0.4 % (0.1-2.0); Eosinophils # 0.3 K/mm3 (0.0-0.4); Eosinophils % 3.4 % (0.1-12.0); Hematocrit 45.3 % (42.0-52.0); Hemoglobin 15.8 g/dL (14.1-18.0); Lymphocytes # 1.5 K/mm3 (0.7-4.5); Lymphocytes % 17.2 % (10-50); Mean Corpuscular HGB Conc 34.8 g/dL (31.8-35.4); Mean Corpuscular Hemoglobin 33.7 pg (27.0-31.2); Mean Corpuscular Volume 96.6 fl (80-94); Mean Platelet Volume 8.8 fl (7.4-10.4); Monocytes # 0.5 K/mm3 (0.1-1.0); Monocytes % 5.9 % (1.7-9.3); Neutrophils # 6.3 K/mm3 (1.8-7.8); Platelet Count 165 K/mm3 (142-424); Red Blood Count 4.68 M/mm3 (4.60-6.20); Red Cell Distribution Width 13.6 % (11.5-17.5); White Blood Count 8.6 K/mm3 (4.8-10.8)
[2023-01-26 13:29] LABS: Alanine Aminotransferase 24 U/L (12-78); Albumin Level 4.6 g/dl (3.5-5.0); Alkaline Phosphatase 60 U/L (38-126); Anion Gap 15.7 mEq/L (5-15); Aspartate Amino Transferase 36 U/L (17-59); Bilirubin,Direct 0.1 mg/dl (0.0-0.4); Bilirubin,Indirect 0.2 mg/dL (0.0-0.9); Bilirubin,Total 0.3 mg/dl (0.2-1.3); Bilirubin,Unconjugated 0.2 mg/dL (0.0-1.1); Blood Urea Nitrogen 14 mg/dl (9-20); Calcium 9.3 mg/dl (8.4-10.2); Carbon Dioxide 25 mmol/L (22.0-30.0); Chloride 106 mmol/L (98-107); Chol/HDL Ratio 3.1 (1-3.5); Cholesterol 152 mg/dl (140-200); Estimated Glomerular Filt Rate 85 ml/min (>60); GFR (African American) 102 ML/MIN (>60); Glucose 86 mg/dl (74-100); HDL Cholesterol 49 mg/dl (40-60); Potassium 4.7 mmoL/L (3.5-5.1); Sodium 142 mmol/L (136-145); Total Protein,Serum 7.2 g/dl (6.3-8.2); Triglycerides 158 mg/dl (30-150); VLDL Cholesterol 32 mg/dL (0-40)
[2023-01-26 13:40] LABS: Direct LDL Cholesterol 32.04 mg/dL (100-129)
[2023-01-26 13:44] LABS: Free T4 (Free Thyroxine) 1.58 ng/dl (0.78-2.19)
[2023-01-26 13:59] LABS: Thyroid Stimulating Hormone 1.92 uIU/mL (0.465-4.68)
== END ==
PROVIDERS: PCP Internal Medicine; Visit Provider Nurse Practitioner
DX: E78.5 Hyperlipidemia, unspecified (principal); I10 Essential (primary) hypertension; R06.09 Other forms of dyspnea; Z79.899 Other long term (current) drug therapy
CPT/HCPCS: 36415; 80048; 80061; 80076; 83735; 84439; 84443; 85025

== ENCOUNTER → 2023-03-07 07:39 | Outpatient (CLI) | payer MEDICARE, MEDICAID, SELFPAY ==
--- NOTE | 2023-03-07 | CA_ITS ---
APPROVED REPORT Exam: Exercise Treadmill Technologist: Kalee Garcia Ht: 6 ft 2 in Wt: 141 lbs BSA: 1.87 m2 HR: 64 bpm BP: 139/94 mmHg Rhythm: NSR Indications: Chest pain Medical History Medications: Ventolin,,,,, SilDENAFIL,,,,, Trelegy Ellipta,,,,, Stress Test Details Test: Rainer HR Resting HR: 69 bpm Max Heart Rate (APMHR): 155 bpm Max HR Achieved: 147 bpm Target HR (85% APMHR): 132 bpm % of APMHR: 95 Recovery HR: 85 bpm HR response to stress: Normal HR response to stress BP Resting BP: 139.0/94.0 mmHg Max BP: 188.0/98.0 mmHg Recovery BP: 142.0/77.0 mmHg BP response to stress: Normal blood pressure response to stress. ECG Resting ECG: Sinus rhythm, PVCs Stress ECG: < 0.[address] depression Arrhythmia: PVCs Recovery ECG: Return to baseline within 3 minutes of recovery Recovery Arrhythmia: PVCs Clinical Exercise duration: 05:57 min Highest Stage Achieved: Exercise capacity: 7.0 METs Overall Exercise Capacity for Age: Average Stress ECG Conclusion Symptoms: Dyspnea Arrhythmias/Ectopy: PVC's ST-T Changes: < 0.[address] depression Conclusion: Average exercise capacity. Normal HR and BP response to exercise. Normal EKG response to exercise. PVCs were noted at rest and at stress. Myoview images are reported separately. Test Summary REST . . . . . . . Sitting REST . . . . . . . Standing REST 03:33 0.0 0.0 69 . 139/ 94 . . Stage 1 01:00 10.0 1.7 94 . . . . Stage 1 02:00 10.0 1.7 105 . . . . Stage 1 03:00 10.0 1.7 119 . 160/ 92 . . Stage 2 01:00 12.0 2.5 128 . . . . Stage 2 02:00 12.0 2.5 136 . . . . Stage 2 . . . . . . . Myoview Injected Stage 2 02:57 12.0 2.5 139 . 180/100 . Stop exercise at 05:57 RECOVERY 01:00 0.0 0.0 123 . 188/ 98 . . RECOVERY 02:00 0.0 0.0 56 . 181/108 . . RECOVERY 03:00 0.0 0.0 92 . 181/108 . . RECOVERY 04:00 0.0 0.0 85 . 152/ 90 . . RECOVERY 05:00 0.0 0.0 77 . 152/ 94 . . RECOVERY 06:00 0.0 0.0 74 . 152/ 94 . . RECOVERY 06:55 0.0 0.0 77 . 142/ 77 . . Electronically signed by : Cecelia Buenrostro MD 03/10/2023 11:37:33
--- NOTE | 2023-03-07 07:39 | NM_ITS ---
APPROVED REPORT Exam: Nuclear Stress Test Indication: chest pain..soa..palpitations Patient Location: Outpatient Stress Tech: Kalee Garcia DE Tech:Shanita Argueta KENIAQuang RT (R)(N)(M) Ht: 6 ft 2 in Wt: 138 lbs HR: 64 bpm BP: 139/94 mmHg BSA: 1.86 m2 Rhythm: NSR TID: 0.98 BMI: 17.7 History: chest pain..soa..palpitations Procedure: Patient exercised on Rainer protocol 5:57 minutes and sec, resting heart rate 64 bpm, resting blood pressure 139/94 mmHg, with exercise maximum heart rate achived was 147 bpm which is 99 % of the maximum predicted heart rate and blood pressure was 188/98 mmHg. Patient has average exercise capacity, achieved 7.0 METs of workload on treadmill, the blood pressure response to exercise was normala. Cardiac Stress and Resting SPECT Images: Cardiac Stress and Resting SPECT images were obtained using technetium 99m Myoview 30.0 mCi stress and 10.03 mCi at rest. Resting and stress imaging in supine and prone positions demonstrate no evidence of fixed or reversible perfusion defects. Gated imaging demonstrates mild reduction in global and regional LV systolic function. LVEF is calculated at 44%. Conclusion: No evidence of fixed or reversible perfusion defects. Gated imaging demonstrates mild reduction in global and regional LV systolic function. LVEF is calculated at 44%. Further evaluation of non-ischemic etiologies of cardiomyopathy is recommended with cardiac MRI (cardiomyopathy protocol), if clinically indicated. Electronically signed by : Cecelia Buenrostro MD 03/10/2023 11:41:26
--- NOTE | 2023-03-07 08:12 | CA_ITS ---
APPROVED REPORT EXAM: Comprehensive 2D, Doppler, and color-flow Echocardiogram Eligibility Manager: SUSAN Dillard, RVS Ht: 6 ft 2 in Wt: 141lbs BSA: 1.87 BP: 151/96 mmHg Indications: CP, COPD, Smoker Echo Enhancing Agent Comments: Technically limited exam secondary to body habitus with lung impedance 2D Dimensions Aortic Root 3.31 cm LA Volume 37.90 mL Left Atrium 1.70 cm LA Volume Index 19.70 mL/m2 (M/F) 16-34 LVOT 1.98 cm (M/F) 1.5-2.5 M-Mode Dimensions RVDd 2.05 cm (0.9-2.6) LA Diam 3.45 cm (1.9-4.0) LVDd 4.55 cm (3.5-5.7) Ao Diam 3.49 cm (2.0-3.7) LVDs 3.27 cm (3.5-5.7) IVSd 0.92 cm (0.6-1.1) PWd 1.00 cm (0.6-1.1) EF (Teich) 54.50% EPSs 0.84 cm FS 28.10% EDV (Teich) 94.90 mL TAPSE 1.83 (<1.7) ESV (Teich) 43.20 mL LV Diastology E Decel Time 223.00 (160-240 msec) E/A Ratio 0.78 MED E' 7.10 (< 7 cm/sec) MED A' 10.80 cm/s E'/MED E' Ratio 6.93 (>14) LAT E' 7.90 (<10 cm/sec) LAT A' 9.80 cm/s E/LAT E' Ratio 6.23 (>14) Aortic Valve LVOT Max 84.00 (70-110 cm/s) LVOT VTI 15.33 cm AoV Peak Moris. 112.00 (50-130 cm/s) AO Peak GR. 5.10 mmHg AO Mean GR. 2.50 (<5 mmHg) AO VTI 20.42 (18-25 cm) ALFA (VTI) 2.31 (2.5-4.5 cm2) Mitral Valve MV A Velocity 63.00 (40-130 cm/s) E/A Ratio 0.78 MV Decel. Time 223.00 (160-240 ms) Tricuspid Valve TR P. Velocity 236.00 cm/s RAP Estimate 10.00 mmHg RVSP 32.20 mmHg Left Ventricle The left ventricle is normal size. The left ventricular systolic function is mildly reduced. There is normal left ventricular wall thickness. There is mild global hypokinesis present. The left ventricular diastolic function is normal. LVEF is 45%. Right Ventricle The right ventricle is normal size. The right ventricular systolic function is normal. Atria The left atrium size is normal. The right atrium size is mildly dilated. There is no Doppler evidence of interatrial shunt. Aortic Valve The aortic valve opens well. There is no aortic valvular stenosis. No aortic regurgitation is present. Mitral Valve The mitral valve is normal in structure. No evidence of mitral valve stenosis. No Mitral Regurgitation. Tricuspid Valve The tricuspid valve leaflets are thin and pliable. Mild tricuspid regurgitation. RVSP is 20-25 mmHg. Pulmonic Valve The pulmonary valve is normal in structure. Trace pulmonic regurgitation. Great Vessels The aortic root is normal in size. The ascending aorta is normal in size. IVC is normal in size and collapses >50% with inspiration. Pericardium There is no pericardial effusion. Other Information Study Quality: Technically Difficult Conclusion Technically difficult study due to poor acoustic windows. Mild reduction in global LV systolic function (LVEF 45%). Mild RA dilation. Mild TR. Electronically signed by : Cecelia Buenrostro MD 03/12/2023 21:27:18
== END ==
PROVIDERS: PCP Internal Medicine; Visit Provider Nurse Practitioner
DX: R06.09 Other forms of dyspnea (principal); R07.9 Chest pain, unspecified; R06.00 Dyspnea, unspecified; R94.31 Abnormal electrocardiogram [ECG] [EKG]
CPT/HCPCS: 78452; 93017; 93018; 93306; A9502

== ENCOUNTER → 2023-03-28 11:14 | Outpatient (CLI) | payer MEDICARE, MEDICAID, SELFPAY | PROVIDERS: PCP Internal Medicine; Visit Provider Nurse Practitioner | DX: R00.2 Palpitations (principal); R06.09 Other forms of dyspnea | CPT/HCPCS: 93270 ==

== ENCOUNTER 2023-05-01 09:19 | Outpatient (CLI) | payer MEDICARE, SELFPAY ==
--- NOTE | 2023-05-01 09:31 | MR_ITS ---
APPROVED REPORT Planting Material Carrier: CLINICAL INDICATION Cardiomyopathy TECHNIQUE Image Acquisition: Cardiac magnetic resonance (CMR) was performed on Siemens Espree MRI 1.5T scanner. Software platform sequences were performed using the Siemens ADCentricity MR B19 platform. A set of three-plane, low-resolution, large [id number] localizers were initially acquired. Then axial, coronal, sagittal TrueFISP, as well as axial HASTE images, were obtained. These were followed by gated TrueFISP breathold cinematic sequences obtained in the short axis with 8 mm slices and 2 mm gaps, 2-chamber (vertical long axis), 3-chamber, 4-chamber (horizontal long axis). A bolus of contrast was injected intravenously with first-pass sequences obtained in the short axis and four-chamber planes. After approximately 10 minutes, a TI railroad auditor sequence was performed to determine the optimal TI time. Using the optimized TI time, delayed contrast enhancement segmented inversion???recovery TurboFLASH sequences were obtained in the short axis, 2-chamber, 3-chamber, and 4-chamber projections. 2D-velocity phase mapping was performed. Functional parameters were calculated by offline analysis on an independent workstation ([employer], [employer]). Contrast: ProHance??? (Gadoteridol) FINDINGS MORPHOLOGY AND FUNCTION Left ventricle: The left ventricle is normal in size. The indexed left ventricular end-diastolic volume (LVEDVi) is 57 ml/m2 (reference range 57-105 ml/m2 in males, 56-96 ml/m2 in females). Normal left ventricular systolic function is present. There is normal left ventricular wall thickness. The septum appears asynchronous. There are no other regional wall motion abnormalities noted. LVEF is calculated at 61.7% (reference range 57-77%). Right ventricle: The right ventricle is normal in size. The indexed right ventricular end-diastolic volume (RVEDVi) is 69 ml/m2 (reference range 61-121 ml/m2 in males, 48-112 ml/m2 in females). There is mild reduction in right ventricular systolic function. RVEF is calculated at 44.3% (reference range 52-72% in males, 51-71% in females). Atria: The left atrium cavity is small. The maximum indexed left atrial volume is 18 ml/m2 (reference range 26-52 ml/m2 in males, 27-53 ml/m2 in females). The right atrium cavity is small. The maximum indexed right atrial volume is 13 ml/m2 (reference range 18-90 ml/m2). Aorta: The diameter of the aortic annulus is normal, measuring 27 mm (coronal view reference range 21-30 mm in males, 19-27 mm in females). The diameter of the aortic sinus is normal, measuring 33 mm (coronal view reference range 25-42 mm in males, 24-36 mm in females). The diameter of the sinotubular junction is normal, measuring 30 mm (coronal view reference range 18-32 mm in males, 18-28 mm in females). The diameters of the ascending and descending thoracic aorta are normal. Main pulmonary artery: The main pulmonary artery diameter is normal. Pericardium: The pericardial thickness is normal. The pericardial thickness measures 2.0 cm (normal < 4.0 cm). There is no pericardial effusion. VALVES The valvular morphologies in the visualized sequences appear normal. There is no significant valvular stenosis or regurgitation of the mitral, aortic, tricuspid, or pulmonic valve noted visually. Systolic anterior motion of the mitral valve is not visualized. Ratio of pulmonary to systemic flow, Qp:Qs ratio = 1.1 (normal < or = 1.2), demonstrating no evidence of hemodynamically significant shunt. TISSUE CHARACTERIZATION Resting Perfusion: Normal myocardial blood flow at rest. No evidence of resting hypoperfusion. Myocardial Fibrosis and/or edema: Normal gadolinium kinetics are present. No evidence of late gadolinium enhancement is noted, consistent with absence of myocardial scarring, infarction, or necrosis. T2-weighted imaging demonstrates no evidence of myocardial edema or inflammation. OTHER No other significant findings are noted. However, this exam is focused on the cardiac structure and function. IMPRESSION Normal LV size with normal LV systolic function. LVEDVi= 57 ml/m2 and LVEF= 61.7%. Normal RV size with mildly reduced RV systolic function. RVEDVi= 69 ml/m2 and RVEF= 44.3%. No atrial enlargement. No CMR evidence of myocardial scarring, infarction, or necrosis. No evidence of myocardial edema or inflammation. Perfusion analysis demonstrates normal blood flow at rest with no evidence of resting hypoperfusion. Ratio of pulmonary to systemic flow, Qp:Qs ratio = 1.1 (normal < or = 1.2), demonstrating no evidence of hemodynamically significant shunt. COMPARISON None CRITICAL RESULT None COMMUNICATION Per this written report The findings of this cardiac MR were reviewed, reported, and signed by Jose Buenrostro MD (Fence Manufacture Supervisor). Conclusion Electronically signed by : Cecelia Buenrostro MD 05/09/2023 10:12:48
[2023-05-01 09:46] LABS: Blood Urea Nitrogen 17 mg/dl (9-20); Estimated Glomerular Filt Rate 75 ml/min (>60); GFR (African American) 91 ML/MIN (>60)
[2023-05-01] MEDS: SODIUM CHLORIDE 0.9% 50ML BAG 20 ML IV (11:10)
[2023-05-01] MEDS: SODIUM CHLORIDE 0.9% 10ML SYR (RAD ONLY) 10 ML IV (11:10)
[2023-05-01] MEDS: GADOTERIDOL INJ 17ML SYRINGE 15 ML IV (11:10)
== END 2023-05-01 23:59 ==
LOC: RAD 09:20
PROVIDERS: PCP Internal Medicine; Visit Provider Nurse Practitioner
DX: E78.5 Hyperlipidemia, unspecified (principal); I10 Essential (primary) hypertension; I49.3 Ventricular premature depolarization; I50.20 Unspecified systolic (congestive) heart failure; J44.1 Chronic obstructive pulmonary disease with (acute) exacerbation; J44.9 Chronic obstructive pulmonary disease, unspecified; R00.2 Palpitations; R06.00 Dyspnea, unspecified; R07.9 Chest pain, unspecified; Z72.0 Tobacco use; I42.8 Other cardiomyopathies
CPT/HCPCS: 36415; 75561; 82565; 84520; A9576

== ENCOUNTER 2023-05-29 19:34 | Outpatient (CLI) | payer MEDICARE, SELFPAY ==
[2023-05-29 18:54] LABS: Basophils # 0.1 K/mm3 (0-0.2); Basophils % 0.8 % (0.1-2.0); Eosinophils # 0.2 K/mm3 (0.0-0.4); Eosinophils % 2.6 % (0.1-12.0); Hematocrit 45.9 % (42.0-52.0); Hemoglobin 15.8 g/dL (14.1-18.0); Lymphocytes # 1.6 K/mm3 (0.7-4.5); Lymphocytes % 23.2 % (10-50); Mean Corpuscular HGB Conc 34.5 g/dL (31.8-35.4); Mean Corpuscular Hemoglobin 32.8 pg (27.0-31.2); Mean Corpuscular Volume 95.3 fl (80-94); Monocytes # 0.5 K/mm3 (0.1-1.0); Monocytes % 6.8 % (1.7-9.3); Neutrophils # 4.5 K/mm3 (1.8-7.8); Neutrophils % 66.5 % (37.0-80.0); Platelet Count 207 K/mm3 (142-424); Red Blood Count 4.82 M/mm3 (4.60-6.20); Red Cell Distribution Width 13.8 % (11.5-17.5); White Blood Count 6.8 K/mm3 (4.8-10.8)
[2023-05-29 19:12] LABS: Alanine Aminotransferase 18 U/L (12-78); Albumin Level 4.5 g/dl (3.5-5.0); Albumin/Globulin Ratio 1.9 (1.1-1.8); Alkaline Phosphatase 66 U/L (38-126); Anion Gap 12.8 mEq/L (5-15); Aspartate Amino Transferase 30 U/L (17-59); Bilirubin,Total 0.4 mg/dl (0.2-1.3); Blood Urea Nitrogen 13 mg/dl (9-20); Calcium 9.4 mg/dl (8.4-10.2); Carbon Dioxide 26 mmol/L (22.0-30.0); Chloride 107 mmol/L (98-107); Estimated Glomerular Filt Rate 47 ml/min (>60); GFR (African American) 57 ML/MIN (>60); Globulin 2.4 g/dL (1.3-3.2); Glucose 69 mg/dl (74-100); Potassium 4.8 mmoL/L (3.5-5.1); Sodium 141 mmol/L (136-145); Total Protein,Serum 6.9 g/dl (6.3-8.2)
== END 2023-05-29 23:59 ==
LOC: LAB.DROPOF 19:34
PROVIDERS: PCP Internal Medicine; Visit Provider Internal Medicine
DX: R53.83 Other fatigue (principal); Z01.818 Encounter for other preprocedural examination
CPT/HCPCS: 80053; 85025

== ENCOUNTER 2024-11-13 14:28 | Outpatient (CLI) | payer MEDICARE, SELFPAY ==
[2024-11-13 19:32] LABS: Hematocrit 45.7 % (42.0-52.0); Hemoglobin 15.5 g/dL (14.1-18.0); Immature Granulocytes % 0.2 %; Mean Corpuscular HGB Conc 33.9 g/dL (31.8-35.4); Mean Corpuscular Hemoglobin 32.6 pg (27.0-31.2); Mean Corpuscular Volume 96.0 fl (80-94); Nucleated Red Blood Cells % 0 %; Platelet Count 211 K/mm3 (142-424); Red Blood Count 4.76 M/mm3 (4.60-6.20); Red Cell Distribution Width-SD 46.9 fL; White Blood Count 8.2 K/mm3 (4.8-10.8)
[2024-11-13 20:02] LABS: Alanine Aminotransferase 19 U/L (12-78); Albumin Level 4.6 g/dl (3.5-5.0); Albumin/Globulin Ratio 1.9 (1.1-1.8); Alkaline Phosphatase 67 U/L (38-126); Anion Gap 11.0 mEq/L (5-15); Aspartate Amino Transferase 28 U/L (17-59); Bilirubin,Total 0.5 mg/dl (0.2-1.3); Blood Urea Nitrogen 15 mg/dl (9-20); Calcium 9.8 mg/dl (8.4-10.2); Carbon Dioxide 26 mmol/L (22.0-30.0); Chloride 107 mmol/L (98-107); Cholesterol 152 mg/dl (140-200); Creatinine,Serum 0.90 mg/dl (0.66-1.25); Estimated Glomerular Filt Rate 84 ml/min (>60); GFR (African American) 102 ML/MIN (>60); Globulin 2.4 g/dL (1.3-3.2); Glucose 89 mg/dl (74-100); HDL Cholesterol 51 mg/dl (40-60); Potassium 5.0 mmoL/L (3.5-5.1); Sodium 139 mmol/L (136-145); Total Protein,Serum 7.0 g/dl (6.3-8.2); Triglycerides 177 mg/dl (30-150)
[2024-11-13 20:34] LABS: Prostate Specific Ag, Diagnost 1.86 ng/ml (0.0-4.0); Thyroid Stimulating Hormone 1.03 uIU/mL (0.465-4.68)
--- OUTSIDE RECORDS SUMMARY | 2024-11-14 12:19 | XMS_ITS | Encounter Summary ---
Author Organization Healthcare Address [address] [place] [address] Care Team Providers Care Seo Coordinator Name Role Phone Baron Reddy MD Primary Care Provider [phone] Encounter Details Date Type Department Care Team (Late st Contact Info) Description 12/01/2020 Orders Only External Location [address] [place] [address] Tyler Barnard MD [address] [facility] [address] [place] [address] Social History Tobacco Use Types Packs/Day Years Used Date Smoking Tobacco: Every Day Cigarettes 1 45.6 Started: 04/10/1979 Smokeless Tobacco: Never Alcohol Use Standard Drinks/Week Comments No 0 (1 standard drink = 0.6 oz pure alcohol) Alcoholic Drinks/day: Denies alcohol consumption PHQ-2 Answer Date Recorded Patient Health Questionnaire-2 Score 0 12/02/2020 Sex and Gender Information Value Date Recorded Sex Assigned at Not on file Legal Sex Male 8:32 PM EDT Gender Identity Not on file Sexual Orientation Not on file COVID-19 Exposure Response Date Recorded In the last month, have you been in contact with someone who was confirmed or suspected to have Coronavirus / COVID-19? No / Unsure 12/02/2020 10:40 AM EDT documented as of this encounter Functional Status * Over the past 2 weeks, how often have you been bothered by any of the following problems? Question Answer Date of Assessment Author Little interest or pleasure in doing things Not at all 12/02/2020 10:51 AM EDT Jagdeep Rosales CNA Feeling down, depressed, or hopeless Not at all 12/02/2020 10:51 AM EDT Jagdeep Rosales CNA Patient Health Questionnaire-2 Score 0 12/02/2020 10:51 AM EDT Livia Rosales CNA documented as of this encounter Plan of Treatment Upcoming Encounters Date Type Department Care Team (Late st Contact Info) Description 11/26/2024 10:40 AM EDT Office Visit [facility] Medicine Specialties [address] [place] [address] hSanon Vegas S, HOUSEHOLD COORDINATOR [address] [place] [address] documented as of this encounter Procedures Procedure Name Priority Date/Time Associated Diagnosis Comments CT CHEST LUNG CANCER SCREENING 12/01/2020 10:43 AM EDT documented in this encounter Results * CT Chest Lung Cancer Screening (12/01/2020 10:43 AM EDT) Anatomical Region Laterality Modality Chest Computed Tomogra phy 12/01/2020 10:4 3 AM EDT us Tyler Barnard MD IMG CT PROCEDURES Final Res ult documented in this encounter Visit Diagnoses Not on filedocumented in this encounter Care Teams Seo Coordinator Relationship Specialty Start Date End Date Baron Reddy MD [address] [place] [id number] PCP - General 08/21/20 documented as of this encounter
--- OUTSIDE RECORDS SUMMARY | 2024-11-14 12:19 | XMS_ITS | Encounter Summary ---
Author Organization Healthcare Address [address] [place] [address] Care Team Providers Care Laundry Tub Maker Name Role Phone Baron Reddy MD Primary Care Provider [phone] Encounter Details Date Type Department Care Team (Late Contact Info) Description 12/08/2020 Orders Only External Location [address] [place] [id number] Shanon Vegas, FOOD PROCESSING PLANT MANAGER [address] [place] [address] Social History Tobacco Use Types [...] AM EDT documented as of this encounter Plan of Treatment Upcoming Encounters Date Type Department Care Team (Late st Contact Info) Description 11/26/2024 10:40 AM EDT [facility] Visit [facility] [address] [place] [address] Shanon Vegas, FOOD PROCESSING PLANT MANAGER [address] [place] [address] documented as of this encounter Procedures Procedure Name Priority Date/Time Associated Diagnosis Comments US CHEST 12/08/2020 1:55 PM EDT documented in this encounter Results * US Chest (12/08/2020 1:55 PM EDT) Anatomical Region Laterality Modality Chest Ultrasound 12/08/2020 1:55 PM EDT us Shanon Vegas APRN IMG US PROCEDURES Final R esult documented in this encounter Visit Diagnoses Not on filedocumented in this encounter Additional Health Concerns Assessment Noted Time A fall risk assessment has been complete d for the patient 12/02/2020 10:51 AM EDT documented as of this encounter Care Teams Laundry Tub Maker Relationship Specialty Start Date End Date Baron Reddy MD [address] [place] [address] PCP - General 08/21/20 documented as of this encounter
--- OUTSIDE RECORDS SUMMARY | 2024-11-14 12:19 | XMS_ITS | Encounter Summary ---
Author Organization [facility] Address [address] [place] [address] Care Team Providers Care Mathematics Teacher Name Role Phone Baron Reddy MD Primary Care Provider Encounter Details Date Type Department Care Team (Late Contact Info) Description 05/13/2022 Orders Only External Location [address] [place] [address] Provider, External Social History Tobacco Use Types Packs/Day Years Used Date Smoking Tobacco: Every Day Cigarettes 1 45.6 Started: 04/10/1979 Smokeless Tobacco: Never Alcohol Use Standard Drinks/Week Comments No 0 (1 standard drink = 0.6 oz pure alcohol) Alcoholic Drinks/day: Denies alcohol consumption PHQ-2 Answer Date Recorded Patient Health Questionnaire-2 Score 0 01/24/2022 Sex and Gender Information Value Date Recorded Sex Assigned at Not on file Legal Sex Male 8:32 PM EDT Gender Identity Not on file Sexual Orientation Not on file documented as of this encounter Plan of Treatment Upcoming Encounters Date Type Department Care Team (Late Contact Info) Description 11/26/2024 10:40 AM EDT Office Visit [facility] Special[facility] [address] [place] [address] Shanon Vegas S, RESPIRATORY SCIENTIST [address] [place] [address] documented as of this encounter Procedures Procedure Name Priority Date/Time Associated Diagnosis Comments CT THORACIC OUTSIDE IMAGES 05/13/2022 7:50 AM EST documented in this encounter Results * CT THORACIC OUTSIDE IMAGES (05/13/2022 7:50 AM EST) Anatomical Region Laterality Modality Computed Tomogra phy 05/13/2022 7:50 AM EST us External Provider IMG CT PROCEDURES Final Result documented in this encounter Visit Diagnoses Not on filedocumented in this encounter Additional Health Concerns Assessment Noted Time A fall risk assessment has been complete d for the patient 01/24/2022 2:42 PM EDT documented as of this encounter Care Teams Mathematics Teacher Relationship Specialty Start Date End Date Baron Reddy MD [address] [place] [address] PCP - General 08/21/20 documented as of this encounter
--- OUTSIDE RECORDS SUMMARY | 2024-11-14 12:19 | XMS_ITS | Encounter Summary ---
Author Organization [facility] Address [address] [place] [address] Care Team Providers Care Veterans' Coordinator Name Role Phone Baron Reddy MD Primary Care Provider [phone] Reason for Visit * Reason Onset Date Comments Med Refill 10/09/2024 Encounter Details Date Type Department Care Team (Late st Contact Info) Description 10/09/2024 Refill [facility] [address] [place] [address] Shanon Vegas S, BATTER OUT [address] [place] [address] COPD, severe (CMS/HCC) Social History Tobacco Use Types Packs/Day Years Used Date Smoking Tobacco: Former Cigarettes 2.5 42 0 04/10/1979 - 04/10/2021 Smokeless Tobacco: Never Alcohol Use Standard Drinks/Week Comments No 0 (1 standard drink = 0.6 oz pure alcohol) Alcoholic Drinks/day: Denies alcohol consumption PHQ-2 Answer Date Recorded Patient Health Questionnaire-2 Score 0 07/15/2024 PHQ-9 Answer Date Recorded Patient Health Questionnaire-9 Score 0 07/15/2024 PHQ-2A Answer Date Recorded Patient Health Questionnaire-2 Score 0 12/26/2022 Sex and Gender Information Value Date Recorded Sex Assigned at Not on file Legal Sex Male 8:32 PM EDT Gender Identity Not on file Sexual Orientation Not on file documented as of this encounter Plan of Treatment Upcoming Encounters Date Type Department Care Team (Late st Contact Info) Description 11/26/2024 10:40 AM EDT Office Visit [facility] [address] [place] [address] Shanon Vegas S, BATTER OUT [address] [place] [address] documented as of this encounter Visit Diagnoses Diagnosis COPD, severe (CMS/HCC) documented in this encounter Additional Health Concerns Assessment Noted Time PHQ-9 Depression Total Score: 0 07/16/19 25 1:30 PM EDT A fall risk assessment has been complete d for the patient 07/15/2024 1:30 PM EDT A Body Mass Index follow-up plan has been documented for the patient 07/15/2024 1:55 PM EDT documented as of this encounter Care Teams Veterans' Coordinator Relationship Specialty Start Date End Date Baron Reddy MD [address] [place] [address] PCP - General 08/21/20 documented as of this encounter
--- OUTSIDE RECORDS SUMMARY | 2024-11-14 12:19 | XMS_ITS | Clinical Summary ---
Author Organization Healthcare Address [address] [place] [address] Care Team Providers Care Stull Hewer Name Role Phone Baron Reddy MD Primary Care Provider [phone] Allergies No known active allergies Medications sildenafil (Revatio) 20 MG tablet TAKE 2 TABLETS BY MOUTH DAILY NEEDED 3 Active losartan (Cozaar) 25 MG tablet Take 1 tablet (25 mg) by mouth 1 (one) time each day. 4 Active metoprolol succinate XL (Toprol-XL) 25 MG 24 hr tablet Take 1 tablet (25 mg) by mouth 1 (one) time each day. 4 Active cetirizine (ZyrTEC) 10 MG tabletIndicatio ns:Rhinorrhea Take 1 tablet by mouth daily. 30 tablet 11 5 07/16/19 26 Active Budeson-Glycopy rrol-Formoterol (Breztri Aerosphere) 160-9-4.8 MCG/ACT aerosolIndicati ons:COPD, severe (CMS/HCC) Inhale 2 puffs 2 times a day. Use with spacer. 10.7 g 3 5 Active Ventolin HFA 108 (90 Base) MCG/ACT inhalerIndicati ons:COPD, severe (CMS/HCC) Inhale 2 puffs as needed for wheezing or shortness of breath (chest tightness). 18 g 5 5 Active Active Problems Problem Noted Date Diagnosed Date Nocturia 06/04/2020 COPD with emphysema 05/01/2018 Tobacco abuse 05/01/2018 Encounters Date Type Department Care Team Description 10/09/2024 Refill [facility] [address] [place] [id number] Shanon Vegas, MILITARY EDUCATION COORDINATOR COPD, severe (CMS/HCC) from Last 3 Months Immunizations Immunization Administration Dates Next Due Influenza, high-dose, quadrivalent 12/26/2022 Influenza, injectable, quadr ivalent, preservative free 12/07/2021,03/29/2021,02/17/2020 Influenza, seasonal, injecta ble, preservative free 05/01/2018 Moderna COVID-19 Vaccine (Re d Cap) 12+ years 03/31/2021,07/17/2020,06/16/2020 Pneumococcal 20-michael Conj Vaccine 12/26/2022 Pneumococcal Polysaccharide PPV23 05/01/2018 Zoster, Recombinant 05/10/2023,02/22/2023 Family History Medical History Relation Name Comments Diabetes Mother Heart attack Mother Lung cancer Other Relation Name Status Comments Mother Other Social History Tobacco Use Types Packs/Day Years Used Date Smoking Tobacco: Former Cigarettes 2.5 42 0 04/10/1979 - 04/10/2021 Smokeless Tobacco: Never Tobacco Cessation:Counseling Given: Not Answered Alcohol Use Standard Drinks/Week Comments No 0 [...] on file Sexual Orientation Not on file Last Filed Vital Signs Vital Sign Reading Time Taken Comments Blood Pressure 131/85 07/15/2024 1:29 PM EDT Pulse 110 07/15/2024 1:29 PM EDT Temperature 36.7 C (98.1 F) 07/15/2024 1:29 PM EDT Respiratory Rate 18 07/15/2024 1:29 PM EDT Oxygen Saturation 94% 07/15/2024 1:29 PM EDT RA Inhaled Oxygen Concentration - - Weight 61 kg (134 lb 7.7 oz) 07/15/2024 1:29 PM EDT Height 188 cm (6' 2 ) 07/15/2024 1:29 PM EDT Body Mass Index 17.27 07/15/2024 1:29 PM EDT Plan of Treatment Upcoming Encounters Date Type Department Care Team (Late st Contact Info) Description 11/26/2024 10:40 AM EDT Office Visit [facility] [address] [place] [address] Shanon Vegas S, MILITARY EDUCATION COORDINATOR [address] [place] [address] Health Maintenance Due Date Last Done Comments [facility]-Hepatitis C Screening 1955 [facility]-Medicare Annual Wellness (AWV) 1955 [facility]-Infant/Child/Adol SDOH Screenings 1955 [facility]- SDOH Screenings 09/26/1975 [facility]-Adult SDOH Screenings 09/26/1975 [facility]-DTaP,Tdap,and Td Vaccines (1 - Tdap) 1976 CT Colonography 2002 Colonoscopy 2002 FIT-DNA 2002 FIT 2002 FOBT 2002 Sigmoidoscopy 2002 [facility]-Colorectal Cancer Screening 2002 [facility]-RSV Vaccine: 60+ Years or (1 - Risk 60-74 years 1-dose series) 2017 [facility]-Abdominal Aortic Aneurysm (AAA) Screening 2022 [id number] Vaccine ( season) 2023 02/22/2023, 03/01/2022, 03/31/2021, Additional history exists [facility]-Lung Cancer Screening 06/18/20242023, 05/13/2022, 12/01/2020 [facility]-Influenza Vaccine (#1) 12/09/202412/26, 12/07/2021, 03/29/2021, Additional history exists [facility]-Depression Screening 07/15/2025 07/15/2024, 10/2024 [facility]-Pneumococcal Vaccine: 50+ Years Completed 12/26/2022, 05/01/2018 [facility]-Zoster Vaccines Completed 05/10/2023, 3 HPV Vaccines Aged Out No longer eligi ble based on patient's age to complete this topic [facility]-HIB Vaccines Aged Out No longer e ligible based on patient's age to complete this topic [facility]-Hepatitis A Vaccines Aged Out No longer eligible based on patient's age to complete this topic [facility]-IPV Vaccines Aged Out No longer e ligible based on patient's age to complete this topic [facility]-Rotavirus Vaccines Aged Out No lo nger eligible based on patient's age to complete this topic Procedures Procedure Name Priority Date/Time Associated Diagnosis Comments CT CHEST LUNG CANCER SCREENING Routine 06/19/2023 12:11 PM EDT Encounter for screening for malignant neoplasm of lung in current smoker with 30 pack year history or greater from Last 3 Months or Most Recently Relevant to Health Maintenance Results * CT Chest Lung Cancer Screening (06/19/2023 12:11 PM EDT) Anatomical Region Laterality Modality Chest Computed Tomogra phy Impressions 06/19/2023 3:20 PM EDT Bilateral calcified pulmonary granulomas. No suspicious pulmonary nodules. Recommendations: LungRADS 2: Benign appearance or behavior - CT Chest Lung Cancer Screening recommended in 12 months. Modifier: None CRITICAL RESULT: No. COMMUNICATION: Per this written report. By electronically signing this report, I, the attending physician, attest that I have personally reviewed the images/data for the above examination(s) and agree with the final edited report. Drafted by Nik Dunn DO on 06/19/2023 1:18 PM Final report signed by Miguelina Lira MD on 06/19/2023 3:20 PM Narrative 06/19/2023 3:20 PM EDT CLINICAL INDICATION: Lung cancer screening; personal history of tobacco use. TECHNIQUE: Multiple CT helical images were obtained from thoracic inlet through upper abdomen without contrast. A low radiation dose protocol was utilized. Total DLP (Dose-Length Product): 39.31 mGy.cm. Please note: The reported value represents the total of one or more individual components during the CT acquisition on this date and at this time, and as such, the same value may appear in more than one CT report depending on the interpreting/reporting physicians. COMPARISON: 05/13/2022 FINDINGS: Mediastinum and Pleura: No adenopathy. Coronary Calcium: Yes, mild. Lungs: Multiple bilateral calcified granulomas. Centrilobular emphysema. No suspicious pulmonary nodules. Upper Abdomen: No suspicious lesion in the partially visualized upper abdomen. Please note that the low dose technique utilized for this examination is optimized for pulmonary nodule evaluation and has limited sensitivity for detection of abdominal abnormalities. Musculoskeletal: Mild degenerative changes of the spine. No aggressive osseous lesions. Procedure Note Miguelina Lira MD - 06/19/2023 CLINICAL INDICATION: Lung cancer screening; personal history of tobacco use. TECHNIQUE: Multiple CT helical images were obtained from thoracic inlet through upperabdomen without contrast. A low radiation dose protocol was utilized. Total DLP (Dose-Length Product): 39.31 mGy.cm. Please note: The reportedvalue represents the total of one or more individual components during theCT acquisition on this date and at this time, and as such, the same valuemay appear in more than one CT report depending on theinterpreting/reporting physicians. COMPARISON: 05/13/2022 FINDINGS: Mediastinum and Pleura: No adenopathy. Coronary Calcium: Yes, mild. Lungs: Multiple bilateral calcified granulomas. Centrilobular emphysema.No suspicious pulmonary nodules. Upper Abdomen: No suspicious lesion in the partially visualized upperabdomen. Please note that the low dose technique utilized for thisexamination is optimized for pulmonary nodule evaluation and has limitedsensitivity for detection of abdominal abnormalities. Musculoskeletal: Mild degenerative changes of the spine. No aggressiveosseous lesions. IMPRESSION: Bilateral calcified pulmonary granulomas. No suspicious pulmonarynodules. Recommendations: LungRADS 2: Benign appearance or behavior - CT Chest Lung Cancer Screeningrecommended in 12 months. Modifier: None CRITICAL RESULT: No. COMMUNICATION: Per this written report. By electronically signing this report, I, the attending physician, attestthat I have personally reviewed the images/data for the aboveexamination(s) and agree with the final edited report. Drafted by Nik Dunn DO on 06/19/2023 1:18 PM Final report signed by Miguelina Lira MD on 06/19/2023 3:20 PM Shanon S [employer] MILITARY EDUCATION COORDINATOR IMG CT PROCEDURES Final R esult from Last 3 Months or Most Recently Relevant to Health Maintenance Insurance MEDICARE Care Teams Stull Hewer Relationship Specialty Start Date End Date Baron Reddy MD [address] [place] [phone] PCP - General 08/21/20
== END 2024-11-13 23:59 | disposition home or self-care (01) ==
LOC: LAB.DROPOF 11-14 12:18
PROVIDERS: PCP Nurse Practitioner Family; Visit Provider Nurse Practitioner Family
DX: N40.0 Benign prostatic hyperplasia without lower urinary tract symptoms (principal); E78.5 Hyperlipidemia, unspecified; R07.9 Chest pain, unspecified; N52.9 Male erectile dysfunction, unspecified; I10 Essential (primary) hypertension
CPT/HCPCS: 80053; 80061; 84153; 84443; 85025